=== PATIENT | female | born 1980 | race Caucasian/White ===

== ENCOUNTER → 2018-05-31 | Outpatient (CLI) | payer BC ==
[~2018-05-31] MED LIST: CETI10CA8 PO; L.AC1CAP6; LEVO50TA86 PO; MULT1CAP59 PO; TRAZ100T31 PO
== END ==
LOC: AUD 09:00
PROVIDERS: ATTEND Otolaryngology
DX: H93.12 Tinnitus, left ear (principal)
CPT/HCPCS: 92557; 92570

== ENCOUNTER → 2018-11-21 | Outpatient (CLI) | payer BC ==
--- NOTE | 2018-11-21 17:55 | RADIOLOGY IMAGING REPORT ---
FACILITY: [facility] PATIENT NAME: Av Beauchamp : 1980 MR: [id number] V: [id number] EXAM DATE: ORDERING PHYSICIAN: MARTIN MARIN TECHNOLOGIST: Location: [facility] Patient: Av Beauchamp : 1980 Visit/Account:[id number] Date of Sevice: 11/21/2018 Exam type: KUB SINGLE VIEW ABDOMEN History: Left lower quadrant pain Comparison: None. Findings: The bowel gas pattern is nonspecific. There is no gross evidence of organomegaly or pathologic intra -abdominal calcifications. There is a transitional lumbar vertebra. A sclerotic density projects ov er the intertrochanteric region of the right hip that is incompletely imaged. IMPRESSION: 1. Nonspecific bowel gas pattern Report Dictated By: Shaista Méndez MD at 11/21/2018 5:49 PM Report E-Signed By: Shaista Méndez MD at 11/21/2018 5:51 PM WSN:[id number]
== END ==
LOC: RAD 16:25
PROVIDERS: ATTEND Family Medicine
DX: R10.32 Left lower quadrant pain (principal)
CPT/HCPCS: 74018